=== PATIENT | male | born 1975 | race Caucasian/White ===

== ENCOUNTER → 2017-03-16 | Outpatient (REF) | payer BC ==
[~2017-03-16] MED LIST: ACET65TA; ALDA25TA2; AMLO10TA; CELE20TA; CORE6.25; COREG; DEMA10TA; LISI30TA3; MYCOSTATIN
[2017-03-18 14:16] LABS: FACTOR VIII ACTIVITY 95 % (57-163)
== END ==
LOC: M LAB REF 12:12
PROVIDERS: ATTEND Internal Medicine Medical Oncology
DX: Z51.81 Encounter for therapeutic drug level monitoring (principal); Z79.01 Long term (current) use of anticoagulants; Z86.73 Personal history of transient ischemic attack (TIA), and cerebral infarction without residual deficits

== ENCOUNTER → 2017-06-03 | Outpatient (REF) | payer BC ==
[2017-06-11 00:08] LABS: APTT 27.6 sec (.); Anticardiolipin Ab, IgA <10 APL (.); DRVTT Screen Seconds 36.7 sec (.); F8 ACTIVITY FOR F8 PANEL 92 % (57-163); F8 ACTIVITY vWB FOR F8 PANEL 118 % (50-200); F8 ANTIGEN FOR F8 PANEL 140 % (50-200); INTERPRETATION: Note (.)
== END ==
LOC: M LAB REF 13:03
PROVIDERS: ATTEND Internal Medicine Medical Oncology
DX: D68.59 Other primary thrombophilia (principal)

== ENCOUNTER 2017-12-19 16:13 | Emergency (ER) | payer BC | END 2017-12-19 18:33 | disposition E | LOC: M ED 16:13 | DX: I46.9 Cardiac arrest, cause unspecified (principal); I10 Essential (primary) hypertension; I50.9 Heart failure, unspecified; E66.9 Obesity, unspecified; Z79.899 Other long term (current) drug therapy | CPT/HCPCS: 92950 ==

== ENCOUNTER → 2017-12-24 | Outpatient (REF) | LOC: M LAB 11:28 ==